=== PATIENT | female | born 1985 | race African-American/Black ===

== ENCOUNTER 2020-01-12 01:29 | Emergency (ER) | payer OTHER ==
[2020-01-12 01:54] VITALS: TEMP 99.1; BMI 26.4
--- NOTE | 2020-01-12 02:30 | PDOC ---
History of Present Illness - History of Present Illness Initial Comments: 34 YOF h/o HTN presents after episode of headache, tingling in fingers and toes, and feeling of tremulousness. Patient reports that she was lying in bed when she suddenly awoke with these sensations. She mentions a previous episode of this nature which she attributes to a panic attack. She denies CP, SOB, N/V/D, diaphoresis, fever or chills. Constitutional: No Weight Change, No Fever, No Chills, No Night Sweats, No Fatigue, No Malaise ENT/Mouth: No Hearing Changes, No Ear Pain, No Nasal Congestion, No Sinus Pain, No Hoarseness, No sore throat, No Rhinorrhea, No Swallowing Difficulty Eyes: No Eye Pain, No Swelling, No Redness, No Foreign Body, No Discharge, No Vision Changes Cardiovascular: No Chest Pain, No SOB, No PND, No Dyspnea on Exertion, No Orthopnea, No Claudication, No Edema, No Palpitations Respiratory: No Cough, No Sputum, No Wheezing, No Smoke Exposure, No Dyspnea Gastrointestinal: No Nausea, No Vomiting, No Diarrhea, No Constipation, No Pain, No Heartburn, No Anorexia, No Dysphagia, No Hematochezia, No Melena, No Flatulence, No Jaundice Genitourinary: No Dysmenorrhea, No DUB, No Dyspareunia, No Dysuria, No Urinary Frequency, No Hematuria, No Urinary Incontinence, No Urgency, No Flank Pain, No Urinary Flow Changes, No Hesitancy Musculoskeletal: No Arthralgias, No Myalgias, No Joint Swelling, No Joint Sti ffness, No Back Pain, No Neck Pain, No Injury History Skin: No Skin Lesions, No Pruritis, No Hair Changes, No Breast/Skin Changes, No Nipple Discharge Neuro: No Weakness, No Numbness, Yes Paresthesias, No Loss of Consciousness, No Syncope, No Dizziness, Yes Headache, No Coordination Changes, No Recent Falls Psych: No Anxiety/Panic, No Depression, No Insomnia, No Personality Changes, No Delusions, No Rumination, No SI/HI/AH/VH, No Social Issues, No Memory Changes, No Violence/Abuse Hx., No Eating Concerns Heme/Lymph: No Bruising, No Bleeding, No Transfusions History, No Lymphadenopathy Endocrine: No Polyuria, No Polydipsia, No Temperature Intolerance <Tebo,Aroldo - Last Filed: 01/12/20 04:48> <Hanh Antony - Last Filed: 01/12/20 04:51> - General Chief Complaint: Blood Pressure Problem Stated Complaint: HIGH BP Time Seen by Provider: 01/12/20 02:30 Past History - Medical History COPD: No HTN: Yes - Reproductive History Is Patient Now?: No - Psycho-Social/Smoking History Smoking History: Never smoked - Substance Abuse Hx (Audit-C & DAST Scrn) How often the patient has a drink containing alcohol: Never Score: In Men: 4 or > Positive; In Women: 3 or > Positive: 0 Screen Result (Pos requires Nsg. Audit-10AR): Negative In the last yr the pt used illegal drug/Rx for NonMed reason: No Score: Yes response is considered Positive: 0 Screen Result (Positive result requires Nsg. DAST-10): Negative <PaulAroldo - Last Filed: 01/12/20 04:48> <Hanh Antony - Last Filed: 01/12/20 04:51> - Medical History Allergies/Adverse Reactions: Allergies Allergy/AdvReac Type Severity Reaction Status Date / Time Penicillins Allergy Verified 01/12/20 01:54 *Physical Exam - Vital Signs Last Vital Signs Temp Pulse Resp BP Pulse Ox 99.1 F 88 18 161/95 100 01/12/20 01:51 01/12/20 01:51 01/12/20 01:51 01/12/20 01:51 01/12/20 01:51 - Physical Exam General Appearance: Yes: Nourished, Appropriately Dressed HEENT: positive: EOMI, FELICIA, Normal ENT Inspection Neck: positive: Trachea midline, Normal Thyroid Respiratory/Chest: positive: Lungs Clear, Normal Breath Sounds Cardiovascular: positive: Regular Rhythm, Regular Rate, S1, S2 Gastrointestinal/Abdominal: positive: Normal Bowel Sounds, Flat, Soft Musculoskeletal: positive: Normal Inspection Extremity: positive: Normal Capillary Refill, Normal Inspection, Normal Range of Motion Integumentary: positive: Normal Color, Dry, Warm Neurologic: positive: specialty sales representative II-XII NML intact, Fully Oriented, Normal Mood/Affect, Normal Response, Motor Strength 5/5 <Aroldo Miller - Last Filed: 01/12/20 04:48> - Vital Signs Last Vital Signs Temp Pulse Resp BP Pulse Ox 99.1 F 73 18 142/90 100 01/12/20 01:51 01/12/20 04:46 01/12/20 04:46 01/12/20 04:46 01/12/20 04:46 <Hanh Antony - Last Filed: 01/12/20 04:51> ED Treatment Course - LABORATORY CBC & Chemistry Diagram: 01/12/20 03:23 01/12/20 03:23 <Aroldo Miller - Last Filed: 01/12/20 04:48> - LABORATORY CBC & Chemistry Diagram: 01/12/20 03:23 01/12/20 03:23 - ADDITIONAL ORDERS Additional order review: Laboratory Results 01/12/20 03:23 Sodium 140 Potassium 3.6 Chloride 105 Carbon Dioxide 25 Anion Gap 10 BUN 8.4 Creatinine 0.9 Est GFR (CKD-EPI)AfAm 98.06 Est GFR (CKD-EPI)NonAf 84.60 Random Glucose 111 H Calcium 8.9 Total Bilirubin 0.3 AST 21 ALT 17 Alkaline Phosphatase 63 Total Protein 8.9 H Albumin 4.5 01/12/20 03:23 RBC 4.52 MCV 85.5 MCHC 32.9 RDW 19.3 H MPV 8.6 Neutrophils % 66.4 Lymphocytes % 25.1 Monocytes % 5.4 Eosinophils % 2.0 Basophils % 1.1 <Hanh Antony - Last Filed: 01/12/20 04:51> Medical Decision Making - Medical Decision Making 34 YOF h/o HTN presents after episode of headache, tingling in fingers and toes, and feeling of tremulousness. Patient reports that she was lying in bed when she suddenly awoke with these sensations. She mentions a previous episode of this nature which she attributes to a panic attack. She denies CP, SOB, N/V/D, diaphoresis, fever or chills. Vitals wnl on arrival, physical exam unremarkable. ddx includes but is not limited to: electrolyte disturbance, ACS, panic attack. plan: EKG, CBC, CMP reassess: <Aroldo Miller - Last Filed: 01/12/20 04:48> Discharge <Aroldo Miller - Last Filed: 01/12/20 04:48> - Discharge Information Problems reviewed: Yes <Hanh Antony - Last Filed: 01/12/20 04:51> - Discharge Information Clinical Impression/Diagnosis: Hypertension Qualifiers: Hypertension type: essential hypertension Qualified Code(s): I10 - Essential (primary) hypertension Condition: Stable Disposition: HOME - Follow up/Referral Referrals: Camryn Ruiz MD [Primary Care Provider] - - Patient Discharge Instructions - Post Discharge Activity
--- NOTE | 2020-01-12 02:32 | PDOC ---
Attending Attestation - Resident Resident Name: Aroldo Miller - ED Attending Attestation I have performed the following: I have examined & evaluated the patient, The case was reviewed & discussed with the resident, I agree w/resident's findings & plan, Exceptions are as noted - HPI HPI: 34 yo F history HTN presents with PHELAN, tingling in fingers/toes, feeling tremulous. Was lying in bed, woke up with these sensations. She has had similar symptoms in past. Denies cp, SOB, leg swelling. - Physicial Exam PE: GENERAL: Awake, alert, and fully oriented, in no acute distress HEAD: No signs of trauma EYES: PERRLA, EOMI, sclera anicteric, conjunctiva clear ENT: Auricles normal inspection, hearing grossly normal, nares patent, oropharynx clear without exudates. Moist mucosa NECK: Normal ROM, supple, no lymphadenopathy, JVD, or masses LUNGS: Breath sounds equal, clear to auscultation bilaterally. No wheezes, and no crackles HEART: Regular rate and rhythm, normal S1 and S2, no murmurs, rubs or gallops ABDOMEN: Soft, nontender, normoactive bowel sounds. No guarding, no rebound. No masses EXTREMITIES: Normal range of motion, no edema. No clubbing or cyanosis. No cords, erythema, or tenderness NEUROLOGICAL: Cranial nerves II through XII grossly intact. Normal speech, normal gait. Motor and sensation intact SKIN: Warm, dry, normal turgor, no rashes or lesions noted. - Medical Decision Making Low risk for ACS. Will obtain EKG based on tremulousness. Labs to r/o electrolyte abnormality based on tingling sensation. If all wnl, will DC home. Heart Score/ECG Review - ECG Impressions Comment:: EKG read 03:29- NSR 77 bpm, no acute ST/T changes Discharge - Discharge Information Problems reviewed: Yes Clinical Impression/Diagnosis: Hypertension Qualifiers: Hypertension type: essential hypertension Qualified Code(s): I10 - Essential (primary) hypertension Condition: Stable Disposition: HOME - Follow up/Referral Referrals: Camryn Ruiz MD [Primary Care Provider] - - Patient Discharge Instructions Patient Printed Discharge Instructions: DI for High Blood Pressure - Post Discharge Activity Work/Back to School Note: Back to Work
[2020-01-12 03:29] LABS: BASO % 1.1 % (0-2.0); HEMATOCRIT 38.6 % (32.4-45.2); HEMOGLOBIN 12.7 GM/dL (10.7-15.3); LYMPH % 25.1 % (8-40); MCH 28.1 pg (25.7-33.7); MCHC 32.9 g/dl (32.0-36.0); MEAN CELL VOLUME 85.5 fl (80-96); MEAN PLT VOLUME 8.6 fl (7.5-11.1); MONO % 5.4 % (3.8-10.2); NEUT % 66.4 % (42.8-82.8); PLATELET COUNT 295 K/MM3 (134-434); RBC 4.52 M/mm3 (3.60-5.2); RDW 19.3 % (11.6-15.6); WHITE BLOOD COUNT 5.9 K/mm3 (4.0-10.0)
[2020-01-12 03:54] LABS: ALBUMIN 4.5 g/dl (3.4-5.0); BILIRUBIN,TOTAL 0.3 mg/dL (0.2-1); BLOOD UREA NITROGEN 8.4 mg/dL (7-18); CALCIUM 8.9 mg/dL (8.5-10.1); CREATININE 0.9 mg/dL (0.55-1.3); POTASSIUM 3.6 mmol/L (3.5-5.1); TOT PROT 8.9 g/dl (6.4-8.2)
[2020-01-12 04:47] VITALS: BP 142/90; PULSE 73
--- NOTE | 2020-01-12 09:14 | EKG ---
Test Reason : Blood Pressure : / mmHG Vent. Rate : 077 BPM Atrial Rate : 077 BPM P-R Int : 168 ms QRS Dur : 090 ms QT Int : 386 ms P-R-T Axes : 065 075 044 degrees QTc Int : 436 ms NORMAL SINUS RHYTHM NORMAL ECG NO PREVIOUS ECGS AVAILABLE Confirmed by LUZ BONE MD ([id number]) on 01/12/2020 9:14:00 AM Referred By: Confirmed By:LUZ BONE MD
== END 2020-01-12 04:53 | disposition home or self-care (01) ==
LOC: JER 01:29
DX: I10 Essential (primary) hypertension (principal)
CPT/HCPCS: 36415; 80053; 85025; 93005; 93010; 99284-25